=== PATIENT | female | born 1970 | race American Indian/Alaskan Native ===

== ENCOUNTER 2017-06-03 09:58 | Outpatient (CLI) | payer BC ==
--- NOTE | 2017-06-04 11:36 | Magnetic Resonance Report ---
MRI LUMBAR SPINE WITHOUT CONTRAST: 06/03/17 CLINICAL: Low back pain. TECHNIQUE: Sagittal and axial T1 and T2, and sagittal STIR sequences a 1.5 Emelyn magnet. FINDINGS: Mild levoscoliosis and exaggerated lumbar lordosis. Slight grade I L4-5 spondylolisthesis with no pars defect identified. The rest of the bodies are in normal alignment. Normal vertebral body height. Disc desiccation and decreased T2 disc signal at all levels but most prominent at L4-5. The overall marrow signal is normal. Modic endplate changes at L4-5. The conus medullaris is normal and terminates at L1. L1-2: Intact. L2-3: Intact. L3-4: Circumferential disc bulge and broad-based bilateral foraminal disc protrusions. Bilateral facet hypertrophy, moderate right neural foraminal narrowing and more pronounced left neural foraminal narrowing. L4-5: Large circumferential disc bulge. Bilateral facet hypertrophy. Pronounced left neural foraminal narrowing and minimal right neural foraminal narrowing. L5-S1: Small broad-based central disc protrusion. Right paracentral annular tear. Mild bilateral facet hypertrophy and minimal bilateral neural foraminal narrowing. IMPRESSION: Mild scoliosis and moderate multilevel degenerative disc disease. Disc bulges and disc protrusions with multilevel neural foraminal narrowing as described above.
== END 2017-06-03 09:59 | disposition home or self-care (01) ==
LOC: MRI 09:58
PROVIDERS: ATTEND Emergency Medicine Emergency Medical Services
DX: M51.16 Intervertebral disc disorders with radiculopathy, lumbar region (principal); M51.26 Other intervertebral disc displacement, lumbar region; M43.16 Spondylolisthesis, lumbar region; M41.86 Other forms of scoliosis, lumbar region
CPT/HCPCS: 72148

== ENCOUNTER 2017-06-15 07:58 | Outpatient (CLI) | payer BC ==
--- NOTE | 2017-06-15 10:49 | Mammography Report ---
BILATERAL MAMMOGRAM: FINDINGS: There are scattered fibroglandular densities (approximately 25%-50% glandular). No mass, distortion, suspicious calcification, or skin change is seen. No interval change identified when compared to prior study in June 2016. CAD was utilized. IMPRESSION: Negative mammogram. There is no mammographic evidence of malignancy. RECOMMENDATION: Follow-up per ACS guidelines. BI-RADS CATEGORY: 1 = Negative ACR BI-RADS MAMMOGRAPHIC CODES: 0 = Needs additional imaging evaluation; 1 = Negative; 2 = Benign; 3 = Probably benign; 4 = Suspicious; 5 = Malignant; 6 = Known biopsy-proven malignancy COMMENT: 1. Dense breast tissue, i.e., adenosis, fibrocystic changes, etc., may obscure an underlying neoplasm. 2. Approximately 10% of cancers are not detected with mammography. 3. A negative mammography report should not delay biopsy if a clinically suspicious mass is present. COMMENT: Patient follow-up letters are generated in [employer].
== END 2017-06-15 07:59 | disposition home or self-care (01) ==
LOC: MAMMO 07:58
PROVIDERS: ATTEND Emergency Medicine Emergency Medical Services
DX: Z12.31 Encounter for screening mammogram for malignant neoplasm of breast (principal)
CPT/HCPCS: 77063; G0202; 77067

== ENCOUNTER 2018-06-29 08:06 | Outpatient (CLI) | payer BC ==
--- NOTE | 2018-07-03 13:42 | Mammography Report ---
BILATERAL DIGITAL SCREENING MAMMOGRAM with CAD: 06/29/18 08:06:00 CLINICAL: Routine screening. COMPARISON:06/15/17 and 06/14/16 FINDINGS: The breasts are mostly fatty a few bilateral scattered residual fibroglandular densities. No mass, architectural distortion or suspicious calcifications. IMPRESSION: No mammographic evidence of malignancy. BI-RADS CATEGORY: 1 - - Negative RECOMMENDATION: Routine mammographic screening in one year. COMMENT: Patient follow-up letters are generated by our [employer] application.
== END 2018-06-29 08:07 | disposition home or self-care (01) ==
LOC: MERGE 08:06 → MAMMO 08:06
PROVIDERS: ATTEND Emergency Medicine Emergency Medical Services
DX: Z12.31 Encounter for screening mammogram for malignant neoplasm of breast (principal)
CPT/HCPCS: 77067

== ENCOUNTER 2019-10-02 14:08 | Outpatient (CLI) | payer BC ==
--- NOTE | 2019-10-02 14:39 | XRay Report ---
CHEST 2 VIEWS INDICATION / CLINICAL INFORMATION: Acute bronchitis. COMPARISON: 05/23/2018. FINDINGS: SUPPORT DEVICES: None. HEART / MEDIASTINUM: The heart size and pulmonary vasculature are normal. LUNGS / PLEURA: No significant pulmonary or pleural abnormality. No pneumothorax. ADDITIONAL FINDINGS: There is moderate thoracolumbar scoliosis with mild associated spondylosis. IMPRESSION: No acute abnormality or significant change. Signer Name: David Betts MD Signed: 10/02/2019 2:35 PM Workstation Name: [id number]
== END 2019-10-02 14:09 | disposition home or self-care (01) ==
LOC: XRAY 14:08
PROVIDERS: ATTEND Family Medicine
DX: J20.8 Acute bronchitis due to other specified organisms (principal); M47.815 Spondylosis without myelopathy or radiculopathy, thoracolumbar region; M41.85 Other forms of scoliosis, thoracolumbar region
CPT/HCPCS: 71046

== ENCOUNTER 2019-10-16 08:31 | Outpatient (CLI) | payer BC ==
[2019-10-16 08:53] LABS: Basophils % (Auto) 0.6 % (0.0-1.8); Eosinophils # (Auto) 0.1 K/mm3 (0.0-0.4); Eosinophils % (Auto) 1.9 % (0.0-4.3); Hematocrit 38.6 % (30.3-42.9); Hemoglobin 13.1 gm/dl (10.1-14.3); Lymphocytes # (Auto) 2.6 K/mm3 (1.2-5.4); Lymphocytes % (Auto) 42.5 % (13.4-35.0); Mean Corpuscular HGB Conc 34 % (30-34); Mean Corpuscular Volume 93 fl (79-97); Monocytes # (Auto) 0.3 K/mm3 (0.0-0.8); Monocytes % (Auto) 5.4 % (0.0-7.3); Platelet Count 383 K/mm3 (140-440); Red Blood Count 4.15 M/mm3 (3.65-5.03); Red Cell Distribution Width 13.6 % (13.2-15.2)
[2019-10-16 09:14] LABS: Blood Urea Nitrogen 14 mg/dL (7-17)
--- NOTE | 2019-10-16 10:27 | Cat Scan Report ---
CT SINUSES WITH CONTRAST HISTORY: Nasal obstruction COMPARISON: None. TECHNIQUE: Axial images of the sinuses were obtained following 100 cc of Omnipaque 300. Coronal refo rmats were generated. All CT scans at this location are performed using CT dose reduction for ALARA b y means of automated exposure control. CONTRAST: None. FINDINGS: Nasal septum: The anterior nasal septum is deviated to the left side by 6.3 mm. Paranasal sinuses: There is minimal mucosal thickening in the inferior maxillary sinuses bilaterally. The ethmoid air cells and sphenoid sinuses are well-aerated. The frontal sinuses did not develop. Ostiomeatal complex: No significant abnormality. Nasal turbinates: No significant abnormality. Visualized mastoid air cells: No significant abnormality. Visualized intracranial space: No significant abnormality. Visualized orbits: No significant abnormality. Additional findings: No abnormal enhancement following IV contrast. IMPRESSION: Deviated nasal septum as described. Minimal chronic mucosal thickening in the inferior maxillary sinuses. Signer Name: Merrill West Jr, MD Signed: 10/16/2019 10:23 AM Workstation Name: [id number]
== END 2019-10-16 08:32 | disposition home or self-care (01) ==
LOC: CT 08:31
PROVIDERS: ATTEND Emergency Medicine Emergency Medical Services
DX: J34.2 Deviated nasal septum (principal)
CPT/HCPCS: 36415; 70487; 82565; 82784; 82785; 84520; 85025; Q9967

== ENCOUNTER 2019-11-29 09:51 | Outpatient (CLI) | payer BC ==
[2019-11-29 10:23] LABS: Basophils % (Auto) 1.1 % (0.0-1.8); Eosinophils # (Auto) 0.2 K/mm3 (0.0-0.4); Eosinophils % (Auto) 5.3 % (0.0-4.3); Hematocrit 37.8 % (30.3-42.9); Hemoglobin 13.1 gm/dl (10.1-14.3); Lymphocytes % (Auto) 49.4 % (13.4-35.0); Mean Corpuscular HGB Conc 35 % (30-34); Mean Corpuscular Volume 92 fl (79-97); Monocytes # (Auto) 0.3 K/mm3 (0.0-0.8); Monocytes % (Auto) 6.9 % (0.0-7.3); Platelet Count 283 K/mm3 (140-440); Red Blood Count 4.12 M/mm3 (3.65-5.03); Red Cell Distribution Width 13.2 % (13.2-15.2)
[2019-11-29 10:48] LABS: Alanine Aminotransferase 23 units/L (7-56); Albumin 4.3 g/dL (3.9-5); BUN/Creatinine Ratio 11; Blood Urea Nitrogen 9 mg/dL (7-17); Calcium 9.6 mg/dL (8.4-10.2); Hemolysis Index 8; LDL Cholesterol,Direct 144 mg/dL (50-130)
[2019-11-29 10:49] LABS: Chol/HDL Ratio 2.06 %; HDL Cholesterol 130 mg/dL (40-59)
--- NOTE | 2019-11-29 14:24 | Magnetic Resonance Report ---
MRI LUMBAR SPINE WITHOUT CONTRAST INDICATION / CLINICAL INFORMATION: CHRONIC LOW BACK PAIN WITH LT SIDED SCIATICA. Prior surgery. TECHNIQUE: Multisequence, multiplanar images of the lumbar spine were obtained. COMPARISON: MRI lumbar spine 06/03/2017 FINDINGS: POSTOPERATIVE CHANGES: Patient appears to be status post left hemilaminotomy at L5-S1. ALIGNMENT: Degenerative grade 1 spondylolisthesis is noted at L4-5. There is a mild S-shaped scoliosi s convex to the right in the lower lumbar region. No additional abnormalities of alignment are identi fied. VERTEBRAE:No suspicious areas of abnormal bone marrow signal intensity are identified. DISC MORPHOLOGY: Disc desiccation is evident at L3-4 and L4-5 levels. Disc height and disc signal int ensity is fairly well maintained elsewhere. VISUALIZED SPINAL CORD: Distal thoracic spinal cord, conus and nerve roots of the cauda equina all rodriguez ve an unremarkable appearance. Conus terminates at about the level of superior endplate of L1. [id number] ANALYSIS: L1-2: No significant abnormality. L2-3: No significant abnormality. L3-4: Disc desiccation is noted. Mild broad-based disc bulge flattens the thecal sac slightly. There is no indication of disc herniation or central canal stenosis. Loss of disc height and facet arthropa thy contribute to moderate bilateral neuroforaminal stenosis at the L3 nerve root level. L4-5: Advanced facet arthropathy is noted. Degenerative grade 1 spondylolisthesis is noted. This has progressed since prior study. Mild narrowing of the central spinal canal is noted. Severe left-sided and mild right-sided neuroforaminal stenosis is evident at the L4 nerve root level. L5-S1: Findings indicate remote left hemilaminotomy. A bone defect is identified in the lateral aspec t of the left lamina. There is left paraspinous muscle atrophy in the presumed postoperative region. Central spinal canal is adequate in size. Facet arthritic change contributes to moderate right-sided and mild left-sided neuroforaminal stenosis at the L5 nerve root level. PARASPINAL SOFT TISSUES: Evaluation of the paraspinous soft tissues reveals no definite abnormalities . IMPRESSION: 1. Degenerative spondylolisthesis at L4-5 has progressed since prior study. 2. Multifocal neuroforaminal stenosis as described level by level above. Signer Name: Dat Perez MD Signed: 11/29/2019 2:20 PM Workstation Name: [id number]
== END 2019-11-29 09:52 | disposition home or self-care (01) ==
LOC: MRI 09:51
PROVIDERS: ATTEND Emergency Medicine Emergency Medical Services
DX: M47.816 Spondylosis without myelopathy or radiculopathy, lumbar region (principal); M51.26 Other intervertebral disc displacement, lumbar region; M41.86 Other forms of scoliosis, lumbar region; M48.061 Spinal stenosis, lumbar region without neurogenic claudication; M43.16 Spondylolisthesis, lumbar region; Z98.890 Other specified postprocedural states; Z98.1 Arthrodesis status
CPT/HCPCS: 36415; 72148; 80053; 80061; 82306; 82607; 82670; 83001; 83036; 84402; 84443; 85025

== ENCOUNTER 2020-04-29 14:06 | Outpatient (CLI) | payer BC ==
--- NOTE | 2020-04-30 12:15 | Magnetic Resonance Report ---
MR cervical spine wo con INDICATION / CLINICAL INFORMATION: 49 years Female; MAIN. TECHNIQUE: Multisequence, multiplanar images of the cervical spine were obtained. Some motion artifact COMPARISON: None available. FINDINGS: CRANIOCERVICAL JUNCTION:No significant abnormality. ALIGNMENT: No significant abnormality. VERTEBRAE:Grossly normal marrow signal and vertebral body height for age. VISUALIZED SPINAL CORD: No significant abnormality. INTERVERTEBRAL DISCS: Mild desiccation seen at C5-6. [id number] ANALYSIS: C2-3: Very small right paracentral disc protrusion. C3-4: Very small posterocentral disc protrusion. Minimal uncinate hypertrophy on the right. C4-5: Mild disc bulge. C5-6: Mild to moderate, broad-based right paracentral/lateral recess disc protrusion which mildly fla ttens cervical cord. No impingement. Moderate foraminal narrowing on the right from uncinate hypertro phy and disc disease. Mild on the left. Please correlate with right C6 nerve root symptomatology. Min imal facet hypertrophy noted. C6-7: Small left paracentral disc protrusion. No significant sequela. C7-T1: No significant abnormality. PARASPINAL SOFT TISSUES: No significant abnormality. ADDITIONAL FINDINGS: None. IMPRESSION: 1. Degenerative changes of the cervical spine as described above. Most marked findings appear to be a t C5-6. Please correlate with dermatomal distribution of patient's symptoms, if present. Signer Name: Ward Tran MD, III Signed: 04/30/2020 12:11 PM Workstation Name: [id number]
== END 2020-04-29 14:07 | disposition home or self-care (01) ==
LOC: MRI 14:06
PROVIDERS: ATTEND Emergency Medicine Emergency Medical Services
DX: M50.21 Other cervical disc displacement, high cervical region (principal); M48.02 Spinal stenosis, cervical region
CPT/HCPCS: 72141

== ENCOUNTER 2020-06-17 11:13 | Outpatient (CLI) | payer BC ==
--- NOTE | 2020-06-17 12:21 | XRay Report ---
LUMBAR SPINE 3 VIEWS INDICATION / CLINICAL INFORMATION: LOW BACK PAIN.. COMPARISON: None available. FINDINGS: Marked thoracolumbar scoliosis with fusion at L4-5. No other significant skeletal abnormality Signer Name: Jeferson Driscoll MD FACR Signed: 06/17/2020 12:16 PM Workstation Name: [id number]
== END 2020-06-17 11:14 | disposition home or self-care (01) ==
LOC: XRAY 11:13
PROVIDERS: ATTEND Neurological Surgery
DX: M41.85 Other forms of scoliosis, thoracolumbar region (principal); M43.26 Fusion of spine, lumbar region
CPT/HCPCS: 72100